=== PATIENT | male | born 1995 ===

== ENCOUNTER 2018-10-22 06:55 | Day surgery (SDC) | payer OTHER ==
[~2018-10-22] VITALS: Ht 170.2 cm; Wt 86.2 kg
[2018-10-22] VITALS (10 sets, daily range): BP systolic 115–138; BP diastolic 61–88
[~2018-10-22 06:55] MED LIST: ceFAZolin 1gm IVPB IVPB ONE; celeBREX 200mg Cap **SURGERY PATIENTS ONLY ORAL ONE; oxyCONTIN 20mg tab ORAL ONE
--- NOTE | 2018-10-22 07:33 | Operative Note - PDOC ---
Operative Note Operative Note Pre-op Diagnosis: right calcile malunion Procedure: see op report Post-op Diagnosis: same as pre-op plus Anesthesia: regional Specimen: none Complications: none Condition: stable Estimated Blood Loss: none Implant(s) used?: Yes Jered Galdamez MD Oct 22, 2018 07:33
--- NOTE | 2018-10-22 07:33 | Pre-Procedure Note/Attestation ---
Pre-Procedure Note/Attestation Complete Prior to Procedure Planned Procedure: right Procedure Narrative: clavicle malunion orif Indications for Procedure Pre-Operative Diagnosis: left calcile malunion Attestation I attest that I discussed the nature of the procedure; its benefits; risks and complications; and alternatives (and the risks and benefits of such alternatives ), prior to the procedure, with the patient (or the patient's legal veterans service representative). I attest that, if there was a reasonable possibility of needing a blood transfusion, the patient (or the patient's legal veterans service representative) was given the [facility] standardized written summary, pursuant to the [place] Blood Safety Act ([place] Health and Safety Code # 1645, as amended). I attest that I re-evaluated the patient just prior to the surgery and that there has been no change in the patient's H&P, except as documented below: Jered Galdamez MD Oct 22, 2018 07:33
[2018-10-22] MEDS ORDERED: HYDROmorphone 1mg/ml Carpuject SUBQ PRN (07:45)
[2018-10-22] MEDS ORDERED: D5 1/2NS 1,000 ML IV SCH (07:45)
[2018-10-22] MEDS ORDERED: HYDROcodone/Acetamin 5/325 tab ORAL PRN ×2 (07:45→14:45)
[2018-10-22] MEDS ORDERED: Tylenol #3 tab (300mg/30mg) ORAL PRN (07:45)
[2018-10-22] MEDS ORDERED: NKM (07:46)
[2018-10-22] MEDS ORDERED: Bupivacaine w/Epi 0.25% 30ml Vial INJ ONE (12:42)
[2018-10-22] MEDS ORDERED: Bacitracin 50000 Units Vial ONE (12:42)
[2018-10-22] MEDS ORDERED: NeoSporin Gu Irrig 1ml Amp IRRIG ONE (12:42)
[2018-10-22] MEDS ORDERED: fentaNYL 100 mcg/2 mL IV ONE ×3 (13:06→14:48)
[2018-10-22] MEDS ORDERED: Midazolam 2mg/2ml Inj ONE ×2 (13:06→13:15)
[2018-10-22] MEDS ORDERED: Ropivacaine 5mg/ml Vial 30ml INJ ONE ×2 (13:07→13:19)
[2018-10-22] MEDS ORDERED: Lidocaine 1% MPF 10mg/ml 5ml ONE ×4 (13:10→14:17)
--- NOTE | 2018-10-22 13:14 | Anethesia Preoperative Eval ---
Jolly Ritter MD 10/22/18 1314: Anesthesia Pre-op PMH/ROS General Date of Evaluation: Oct 22, 2018 Anesthesiologist: Jeremiah ASA Score: ASA 1 Mallampati Score Class I : Soft palate, uvula, fauces, pillars visible Class II: Soft palate, uvula, fauces visible Class III: Soft palate, base of uvula visible Class IV: Only hard plate visible Mallampati Classification: Class I Surgeon: Rudolph Diagnosis: Right clavicle fracture Surgical Procedure: Right clavicle ORIF Anesthesia History: none Family History: no anesthesia problems Allergies: Coded Allergies: No Known Allergies (Unverified , 10/22/18) Medications: see eMAR Patient NPO?: Yes NPO Date: Oct 21, 2018 NPO Time: 22:00 Past Medical History Cardiovascular: Denies: HTN, CAD, GA, valve dz, arrhythmia, other Pulmonary: Denies: asthma, COPD, VANESSA, other Gastrointestinal/Genitourinary: Denies: GERD, CRI, ESRD, other Neurologic/Psychiatric: Denies: dementia, CVA, depression/anxiety, TIA, other Endocrine: Denies: DM, hypothyroidism, steroids, other HEENT: Denies: cataract (L), cataract (R), glaucoma, T[place]-BILOXI (L), [place] (R), other Hematology/Immune: Denies: anemia, DVT, bleeding disorder, other Musculoskeletal/Integumentary: Denies: OA, RA, DJD, DDD, edema, other PSxH Narrative: Denies Anesthesia Pre-op Phys. Exam Physician Exam Last Vital Signs Date Time Temp Pulse Resp B/P (MAP) Pulse Ox O2 Delivery O2 Flow Rate FiO2 10/22/18 07:43 Room Air 10/22/18 07:41 97.5 71 18 130/85 98 Constitutional: NAD Cardiovascular: RRR Respiratory: CTA Airway Exam Mallampati Score: Class II MO: full ROM: full Teeth: intact Anesthesia Pre-op A/P Labs see chart Studies Pre-op Studies: EKG - sr Risk Assessment & Plan Assessment: ASA I Plan: GA with supraclavicular block Status Change Before Surgery: No Pre-Antibiotics Drug: TBD Given Within 1 Hr of Incision: Yes Osman Ramos MD 10/22/18 1431: Anesthesia Pre-op PMH/ROS General Time of Evaluation: 14:19 Allergies: Coded Allergies: No Known Allergies (Unverified , 10/22/18) Anesthesia Pre-op A/P Pre-Antibiotics Dru Grams Ancef IV Given Within 1 Hr of Incision: Yes Time Given: 14:27 Jolly Ritter MD Oct 22, 2018 13:14 Osman Ramos MD Oct 22, 2018 14:31
[2018-10-22] MEDS ORDERED: Propofol 200mg/20ml IV ONE ×2 (13:15→13:17)
[2018-10-22] MEDS ORDERED: LR 1000ml ONE (14:00)
[2018-10-22] MEDS ORDERED: Sterile Water Irrig 1000ml IRRIG ONE (14:00)
--- NOTE | 2018-10-22 14:33 | 48 Hour Post Anesthesia Eval ---
Post Anesthesia Evaluation Procedure: ORIF R Clavicle Date of Evaluation: Oct 22, 2018 Time of Evaluation: 17:09 Blood Pressure Systolic: 114 0: 62 Pulse Rate: 62 Respiratory Rate: 18 Temperature (Fahrenheit): 98.2 O2 Sat by Pulse Oximetry: 99 Airway: patent Nausea: No Vomiting: No Pain Intensity: 2 Hydration Status: adequate Cardiopulmonary Status: Stable Mental Status/LOC: patient returned to baseline Follow-up Care/Observations: 0 Post-Anesthesia Complications: 0 Follow-up care needed: ready to discharge Osman Ramos MD Oct 22, 2018 14:33
--- NOTE | 2018-10-22 14:33 | Immediate Post-Op Evaluation ---
Immediate Post-Op Evalulation Immediate Post-Op Evalulation Procedure: ORIF R Clavicle Date of Evaluation: Oct 22, 2018 Time of Evaluation: 15:54 IV Fluids: 1400 LR Blood Products: 0 Estimated Blood Loss: 35 Urinary Output: 0 Blood Pressure Systolic: 115 Blood Pressure Diastolic: 61 Pulse Rate: 64 Respiratory Rate: 16 O2 Sat by Pulse Oximetry: 99 Temperature (Fahrenheit): 97.3 Pain Score (1-10): 2 Nausea: No Vomiting: No Complications 0 Patient Status: awake, reacts, patent, none Hydration Status: adequate Dru Grams Ancef IV Given Within 1 Hr of Incision: Yes Time Given: 14:27 Osman Ramos MD Oct 22, 2018 14:33
[2018-10-22] MEDS ORDERED: LR 1000ml 1,000 ML IVLG SCH (14:43)
[2018-10-22] MEDS ORDERED: LORazepam Inj 2mg/ml 1ml IV PRN (14:45)
[2018-10-22] MEDS ORDERED: Labetalol 5mg/ml 20ml vial IV PRN (14:45)
[2018-10-22] MEDS ORDERED: DiphenhydrAMINE 50mg/ml Inj IVP PRN (14:45)
[2018-10-22] MEDS ORDERED: fentaNYL 100 mcg/2 mL IV PRN (14:45)
[2018-10-22] MEDS ORDERED: Meperidine 50mg/ml Inj(FOR RIGORS ONLY) IVP PRN (14:45)
[2018-10-22] MEDS ORDERED: oxyCODONE HCL/Acetaminophen 5/325mg ORAL PRN (14:45)
[2018-10-22] MEDS ORDERED: HYDROcodone/Acetamin 7.5/325 tab ORAL PRN (14:45)
[2018-10-22] MEDS ORDERED: Metoclopramide 10mg/2ml Inj IVP PRN (14:45)
[2018-10-22] MEDS ORDERED: Hydromorphone 0.5mg/0.5ml inj IVP PRN (14:45)
[2018-10-22] MEDS ORDERED: Ketorolac 30mg Inj IV PRN ×2 (14:45)
[2018-10-22] MEDS ORDERED: Atropine Sulfate 0.4mg/ml inj IVP PRN (14:45)
[2018-10-22] MEDS ORDERED: Midazolam 2mg/2ml Inj IVP PRN (14:45)
[2018-10-22] MEDS ORDERED: NS Irrig 1000ml IRRIG ONE (14:58)
--- NOTE | 2018-10-22 16:08 | Diagnostic Imaging Report ---
INDICATION: Pain, intraoperative TECHNIQUE: Intraoperative imaging Fluoroscopy time: 9 seconds Total dose: 0.68095 mGym2 Total number of images: 2 COMPARISON: None FINDINGS: Intraoperative images document repair of right clavicular fracture using plate and screws IMPRESSION: Intraoperative imaging, as described
--- NOTE | 2018-10-22 21:45 | Operative Note - Dictated ---
DATE OF OPERATION: 10/22/2018 PREOPERATIVE DIAGNOSIS: Right clavicular malunion. POSTOPERATIVE DIAGNOSIS: Right clavicular malunion. PROCEDURE: Open reduction and internal fixation of right clavicle complicated secondary to malunion. SURGEON: Jered Galdamez M.D. ANESTHESIA: Interscalene with general. INDICATION FOR PROCEDURE: The patient is a pleasant gentleman, who sustained a clavicle fracture, shortening and continued pain in the right shoulder, he elected to undergo open reduction and internal fixation of right clavicle. Risks, limitations, expectations, complication of the procedure discussed in detail. All questions addressed. DESCRIPTION OF PROCEDURE: After informed consent was obtained, the patient was brought to the operating room. The patient was placed under general anesthesia. The patient then carefully placed in a 45 degrees of beach chair position. Right shoulder was prepped and draped in a sterile manner. Ancef was administered. Time-out was performed. Anterior skin incision along the clavicle was performed. The subcutaneous flaps were created. The full-thickness fascial layers down to the bone was performed. At this point, malunion was identified. There was significant shortening and overlap. Using the superior plane of the distal fragment, osteotomy was performed. Once this was done, the two fragments were then gently lengthened and reduced with plate. Imaging showed good overall placement and the bones were opposing each other. At this point, four screws were placed in the proximal distal shaft. Once this was completed, the bone graft was placed. The deltoid fascia was approximated with #1 Vicryl suture, subcutaneous tissue approximated with 3-0 Vicryl, Monocryl and Dermabond dressing. The patient was awoken and taken to recovery room with stable vital signs. ESTIMATED BLOOD LOSS: None. COMPLICATIONS: None. SPECIMENS: None. IMPLANTS: Include Ernestine clavicular plate and screws. Jered Galdamez M.D. DR: Robert JOB#: [id number] CC: FABIAN
== END 2018-10-22 17:26 | disposition home or self-care (01) ==
LOC: SUR 06:55
DX: S42.001A Fracture of unspecified part of right clavicle, initial encounter for closed fracture (principal); X58.XXXA Exposure to other specified factors, initial encounter; Y92.9 Unspecified place or not applicable
CPT/HCPCS: 23515; 73060; 76000; C1713; J0690; J1885; J2250; J2405; J2704; J2795; J3010; 94003; 94150